=== PATIENT | male | born 1935 | race Caucasian/White ===

== ENCOUNTER → 2017-04-11 | Outpatient (CLI) | payer OTHER ==
[~2017-04-11] MED LIST: NAPR500 PO; TAB-TAB PO
--- NOTE | 2017-04-11 21:33 | MG ---
cc: EMIR MARES M.D. Lab No: Date: 04/11/17 Age: 81 Sex: M Race: REQUESTING Dr. Jenkins HISTORY An EEG was obtained on this 81-year-old patient being evaluated as outpatient. There is a history of memory loss. MEDICATIONS include Carbamazepine. DESCRIPTION The patient is awake and asleep. Hyperventilation not performed. There are low amplitude beta rhythms diffusely intermixed with artifact. There are some 8 to 10 per second low to mid amplitude rhythms the central and posterior head regions. The patient later on drowses and there is beta rhythms diffusely, the tracing appears symmetrical. Photic stimulation was unremarkable. INTERPRETATION Probably normal awake and drowsy EEG for the patient's age. No epileptiform features present. Emir Mares MD [facility]/EO /8:50 PM /9:26 PM
== END ==
LOC: HEEG 09:25
PROVIDERS: ATTEND Psychiatry & Neurology Neurology
DX: R41.3 Other amnesia (principal)
CPT/HCPCS: 95819